=== PATIENT | male | born 1995 | race Hispanic/Latino ===

== ENCOUNTER 2024-07-12 01:30 | Emergency (ER) | payer BC, OTHER ==
[2024-07-12] MEDS ORDERED: Bacitracin 1 PK ONE (01:55)
[2024-07-12] MEDS ORDERED: Boostrix 0.5 ML (Tdap) VIAL (>/=7 yrs of age) ONE (01:55)
[2024-07-12] MEDS ORDERED: Amoxicillin/Potassium Clav 875 MG TAB ONE (02:22)
== END 2024-07-12 02:28 | disposition home or self-care (01) ==
LOC: CSHERS 01:30
DX: S61.252A Open bite of right middle finger without damage to nail, initial encounter (principal); S61.212A Laceration without foreign body of right middle finger without damage to nail, initial encounter; R03.0 Elevated blood-pressure reading, without diagnosis of hypertension; W54.0XXA Bitten by dog, initial encounter; Z23 Encounter for immunization
CPT/HCPCS: 90471; 90715

== ENCOUNTER 2025-06-18 18:40 | Emergency (ER) | payer BC, SELFPAY ==
[2025-06-18] MEDS ORDERED: metroNIDAZOLE 500 MG TAB ONE (19:19)
[2025-06-18 19:47] LABS: Glucose, Urine (Dipstick) Negative (Negative); Leukocyte Negative (Negative); Protein, Urine (Dipstick) Trace mg/dL (Neg-Trace); Specific Gravity, Urine 1.025 (1.005-1.030)
[2025-06-18 20:19] LABS: CAUTI Indications for Culture Dysuria,urgency,freq; RBC/HPF 0-3 HPF (0-3)
[2025-06-18 20:20] LABS: Bacteria/HPF Rare-Few HPF (None Seen); Mucous/LPF 1+ LPF (<2+)
[2025-06-18 20:21] LABS: Urine Culture Reflex No No
[2025-06-19 11:07] LABS: Chlam.trachomatis by PCR,Urine Not Detected (NotDetected); GC N.gonorrhoeae PCR,UrineVOID Not Detected (NotDetected)
== END 2025-06-18 19:58 | disposition home or self-care (01) ==
LOC: CSHERS 18:40
DX: A64 Unspecified sexually transmitted disease (principal); Z55.6 Problems related to health literacy
CPT/HCPCS: 81001; 87491; 87591; 99283

== ENCOUNTER 2025-07-31 03:09 | Emergency (ER) | payer SELFPAY | END 2025-07-31 04:26 | disposition home or self-care (01) | LOC: CSHERS 03:09 | DX: S02.2XXA Fracture of nasal bones, initial encounter for closed fracture (principal); W22.8XXA Striking against or struck by other objects, initial encounter | CPT/HCPCS: 70486; 76376 ==

== ENCOUNTER 2025-08-24 09:06 | Emergency (ER) | payer SELFPAY | END 2025-08-24 09:48 | disposition home or self-care (01) | LOC: CSHERS 09:06 | DX: M71.22 Synovial cyst of popliteal space [Baker], left knee (principal) | CPT/HCPCS: 99283 ==